=== PATIENT | female | born 1985 | race African-American/Black ===

== ENCOUNTER 2016-12-20 19:53 | Emergency (ER) | payer OTHER ==
[2016-12-20 20:02] VITALS: BP 112/71; PULSE 88; TEMP 98.3; BMI 22.1
--- NOTE | 2016-12-20 20:31 | PDOC ---
History of Present Illness - General Chief Complaint: Pain, Acute Stated Complaint: HEAD/NECK PROBLEM Time Seen by Provider: 12/20/16 20:18 History Source: Patient Exam Limitations: No Limitations - History of Present Illness Initial Comments: 12/20/16 21:23 Chief complaint: Right lateral neck pain that radiates to her right mid shoulder area since waking this morning History of present illness: Patient is a 31-year-old female with h/o anemia here today due to waking with right lateral neck pain that radiates to her right mid posterior shoulder area since this morning. Patient reports taking Tylenol earlier today however it alleviated pain slightly. Patient reports the pain is an 8 and is worse with lying down and trying to get up. Patient reports that she works walking and holding an laptop in her arm. Patient reports the pain currently as an 8 out of 10 aching in nature. Patient denies any radiation down her right arm or any numbness of her right arm or tingling. Patient denies any midline neck tenderness. 12/20/16 21:25 Timing/Duration: changing over time (lessening ) Severity: moderate (rt. lateral neck to rt. mid shoulder area) Modifying Factors: improves with: movement Associated Symptoms: reports: denies symptoms Past History - Past Medical History Allergies/Adverse Reactions: Allergies Allergy/AdvReac Type Severity Reaction Status Date / Time No Known Drug Allergies Allergy Verified 12/20/16 19:59 Home Medications: Ambulatory Orders Cyclobenzaprine HCl [Flexeril 10 mg] 10 mg PO Q8H PRN #20 tablet 12/20/16 Naproxen [Naprosyn -] 500 mg PO BID PRN #14 tablet 12/20/16 Anemia: Yes Asthma: No Cancer: No Cardiac Disorders: No CVA: No COPD: No CHF: No Dementia: No Diabetes: No GI Disorders: No Disorders: No HTN: No Hypercholesterolemia: No Liver Disease: No Seizures: No Thyroid Disease: No - Psycho/Social/Smoking Cessation Hx Anxiety: No Suicidal Ideation: No Smoking History: Never smoked Have you smoked in the past 12 months: Yes Number of Cigarettes Smoked Daily: 3 'Breaking Loose' booklet given: 05/28/12 Hx Alcohol Use: No Drug/Substance Use Hx: No Substance Use Type: None Hx Substance Use Treatment: No Review of Systems - Review of Systems Able to Perform ROS?: Yes Constitutional: No: Symptoms Reported HEENTM: No: Symptoms Reported Respiratory: No: Symptoms reported Cardiac (ROS): No: Symptoms Reported ABD/GI: No: Symptoms Reported : No: Symptoms Reported Musculoskeletal: Yes: Muscle Pain (rt. posterior shoulder midway ), Neck Pain ( right lateral radiates to rt. mid posterior shoulder areas since waking today ) Integumentary: No: Symptoms Reported Neurological: No: Symptoms reported *Physical Exam - Vital Signs Last Vital Signs Temp Pulse Resp BP Pulse Ox 98.3 F 88 18 112/71 100 12/20/16 20:00 12/20/16 20:00 12/20/16 20:00 12/20/16 20:00 12/20/16 20:00 - Physical Exam General Appearance: Yes: Appropriately Dressed HEENT: positive: Normal ENT Inspection Neck: positive: Tender (rt. lateral ), Tender lateral (right ). negative: Lymphadenopathy (R), Lymphadenopathy (L), Tender midline Respiratory/Chest: positive: Lungs Clear, Normal Breath Sounds. negative: Respiratory Distress Cardiovascular: positive: Regular Rhythm, Regular Rate, S1, S2 Extremity: positive: Normal Capillary Refill, Normal Inspection, Normal Range of Motion, Tender (rt. mid posterior shoulder ). negative: Swelling Integumentary: positive: Normal Color Neurologic: positive: Alert, Normal Response, Motor Strength 5/5 (upper extremities), Respond to painful stimul (rt.shoulder, neck, arm ). negative: Sensory Deficit (rt. arm) Medical Decision Making - Medical Decision Making 12/20/16 21:25 Patient is a 31-year-old female with no significant medical history here today due to waking with right lateral neck pain that radiates to her right mid posterior shoulder area since this morning. Patient reports taking Tylenol earlier today however it alleviated pain slightly. Patient reports the pain is an 8 and is worse with lying down and trying to get up. Patient reports that she works walking and holding an laptop in her arm. Patient reports the pain currently as an 8 out of 10 aching in nature. Patient denies any radiation down her right arm or any numbness of her right arm or tingling. Patient denies any midline neck tenderness. 12/20/16 21:27 rt. Lateral neck and posterior right mid shoulder pain Plan: Urine hCG negative Naprosyn 500 mg by mouth now then twice a day 7 days as needed for pain Flexeril 10 mg by mouth now then every 8 hours as needed for muscle tightness or spasm Follow up with ortho *DC/Admit/Observation/Transfer Diagnosis at time of Disposition: Neck pain on right side Muscle strain of shoulder region Qualifiers: Encounter type: initial encounter Laterality: right Qualified Code(s): S46.911A - Strain of unspecified muscle, fascia and tendon at shoulder and upper arm level, right arm, initial encounter - Discharge Dispostion Disposition: HOME Condition at time of disposition: Stable - Referrals Referrals: Adán Luque MD [Primary Care Provider] - John Shelton MD [Staff Physician] - - Patient Instructions Additional Instructions: Follow up with orthopedist if pain continues or worsens Avoid looking down when carrying laptop or eye pat had as this will cause more pain and your neck and shoulder area Return to emergency room if symptoms worsen or new symptoms develop Patient voiced understanding of discharge instructions and all questions were answered
[2016-12-20] MEDS ORDERED: NAPROXEN 500 MG TABLET (FP) PO ONE (21:22)
[2016-12-20] MEDS ORDERED: CYCLOBENZAPRINE HCL 10 MG TABLET (FP) PO ONE (21:22)
[2016-12-20] MEDS ORDERED: NAPROXEN 500 MG TABLET (FP) ONE (21:26)
[2016-12-20] MEDS ORDERED: CYCLOBENZAPRINE HCL 10 MG TABLET (FP) ONE (21:26)
== END 2016-12-20 21:31 | disposition home or self-care (01) ==
LOC: JERFT 19:53
DX: M54.2 Cervicalgia (principal); S46.811A Strain of other muscles, fascia and tendons at shoulder and upper arm level, right arm, initial encounter; X50.1XXA Overexertion from prolonged static or awkward postures, initial encounter; Y93.89 Activity, other specified; Y92.038 Other place in apartment as the place of occurrence of the external cause
CPT/HCPCS: 84703; 99281-25

== ENCOUNTER 2017-01-25 08:22 | Emergency (ER) | payer OTHER ==
[2017-01-25 08:33] VITALS: BP 139/71; PULSE 95; TEMP 98.5; BMI 21.6
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
[2017-01-25] MEDS ORDERED: ACETAMINOPHEN 500 MG TABLET (FP) PO ONE (09:12)
[2017-01-25] MEDS ORDERED: ACETAMINOPHEN 500 MG TABLET (FP) ONE (09:28)
== END 2017-01-25 10:12 | disposition home or self-care (01) ==
LOC: JERFT 08:22
DX: R51 Headache (principal); V49.49XA Driver injured in collision with other motor vehicles in traffic accident, initial encounter; Y92.410 Unspecified street and highway as the place of occurrence of the external cause; Y93.89 Activity, other specified
CPT/HCPCS: 70450-TC; 84703; 99281-25

== ENCOUNTER 2021-08-11 09:44 | Emergency (ER) | payer OTHER ==
[2021-08-11 09:57] VITALS: BP 120/81; PULSE 95; BMI 24.9
[2021-08-11 09:59] VITALS: TEMP 98.3
[2021-08-11] MEDS ORDERED: KETOROLAC TROMETHAMINE 30 MG/1 ML VIAL IM ONE (10:06)
[2021-08-11] MEDS ORDERED: ACETAMINOPHEN/CAFFEINE/BUTALBITAL 1 TAB PO ONE (10:06)
[2021-08-11] MEDS ORDERED: KETOROLAC TROMETHAMINE 30 MG/1 ML VIAL ONE (10:10)
[2021-08-11] MEDS ORDERED: ACETAMINOPHEN/CAFFEINE/BUTALBITAL 1 TAB ONE (10:11)
== END 2021-08-11 10:40 | disposition home or self-care (01) ==
LOC: JER 09:44
PROC: 3E0233Z Introduction of Anti-inflammatory into Muscle, Percutaneous Approach (ICD-10-PCS; principal; 2021-08-11)
DX: R05.1 Acute cough (principal); R51.9 Headache, unspecified; R09.81 Nasal congestion; Z11.52 Encounter for screening for COVID-19
CPT/HCPCS: 71046-TC-FY; 99284-25; C9803; U0003; U0005

== ENCOUNTER 2022-03-01 23:23 | Emergency (ER) | payer OTHER ==
[2022-03-01 23:29] VITALS: TEMP 98.2; BMI 24.0
[2022-03-02] MEDS ORDERED: ACETAMINOPHEN 500 MG TABLET (FP) PO ONE (00:03)
[2022-03-02] MEDS ORDERED: ACETAMINOPHEN 500 MG TABLET (FP) ONE (00:15)
[2022-03-02 01:09] LABS: BASO % 0.4 % (0-2.0); EOS % 0.7 % (0-4.5); HEMATOCRIT 37.4 % (32.4-45.2); HEMOGLOBIN 12.4 GM/dL (10.7-15.3); LYMPH % 35.5 % (8-40); MCH 31.2 pg (25.7-33.7); MCHC 33.1 g/dl (32.0-36.0); MEAN CELL VOLUME 94.4 fl (80-96); MEAN PLT VOLUME 7.3 fl (7.5-11.1); MONO % 8.5 % (3.8-10.2); NEUT % 54.9 % (42.8-82.8); PLATELET COUNT 313 10^3/uL (134-434); RBC 3.96 M/mm3 (3.60-5.2); WHITE BLOOD COUNT 8.6 K/mm3 (4.0-10.0)
[2022-03-02 01:18] LABS: CHLORIDE 107 mmol/L (98-107); SODIUM 137 mmol/L (136-145)
[2022-03-02 01:21] LABS: ANION GAP 7 MMOL/L (8-16); BLOOD UREA NITROGEN 16.4 mg/dL (7-18); CO2 23 mmol/L (21-32); GLUCOSE,RANDOM 100 mg/dL (74-106)
[2022-03-02 01:22] LABS: ALBUMIN 3.7 g/dl (3.4-5.0)
[2022-03-02 01:24] LABS: CREATININE 0.8 mg/dL (0.55-1.3); SGOT/AST 17 U/L (15-37); SGPT/ALT 20 U/L (13-61)
[2022-03-02 01:26] LABS: BILIRUBIN,TOTAL 0.4 mg/dL (0.2-1); TOT PROT 7.3 g/dl (6.4-8.2)
[2022-03-02 01:27] LABS: ALK PHOS 88 U/L (45-117)
[2022-03-02] MEDS ORDERED: KETOROLAC TROMETHAMINE 15 MG/ML VIAL IVPUSH ONE (01:46)
[2022-03-02] MEDS ORDERED: KETOROLAC TROMETHAMINE 15 MG/ML VIAL ONE (01:53)
[2022-03-02 02:16] VITALS: BP 126/78; PULSE 76
== END 2022-03-02 02:15 | disposition home or self-care (01) ==
LOC: JER 23:23
PROC: 3E0233Z Introduction of Anti-inflammatory into Muscle, Percutaneous Approach (ICD-10-PCS; principal; 2022-03-01)
DX: R07.9 Chest pain, unspecified (principal)
CPT/HCPCS: 36415; 71046-TC-FY; 80053; 84484; 84703; 85025; 85379; 93005; 93010; 99285-25

== ENCOUNTER 2022-10-05 16:30 | Emergency (ER) | payer OTHER ==
[2022-10-05 16:43] VITALS: BP 108/71; PULSE 73; RESP 18; TEMP 97.8; BMI 24.0
[2022-10-05] MEDS ORDERED: DIPHTH,PERTUSS(ACELL),TET 0.5 ML DISP.SYRIN IM ONE ×2 (17:43→18:17)
[2022-10-05] MEDS ORDERED: AMOX TR/POT CLAV 875MG/125MG TABLETS (FP) PO ONE (17:44)
[2022-10-05] MEDS ORDERED: AMOX TR/POT CLAV 875MG/125MG TABLETS (FP) ONE (18:17)
== END 2022-10-05 19:04 | disposition home or self-care (01) ==
LOC: JERFT 16:30
PROC: 3E0234Z Introduction of Serum, Toxoid and Vaccine into Muscle, Percutaneous Approach (ICD-10-PCS; principal; 2022-10-05)
DX: S81.852A Open bite, left lower leg, initial encounter (principal); W54.0XXA Bitten by dog, initial encounter
CPT/HCPCS: 73562-TC-LT-FY; 90471; 90715; 99283-25

== ENCOUNTER 2023-03-06 23:04 | Emergency (ER) | payer OTHER ==
[2023-03-06 23:13] VITALS: BP 116/73; PULSE 96; RESP 20; TEMP 97.8; BMI 23.3
[2023-03-07] MEDS ORDERED: KETOROLAC TROMETHAMINE 30 MG/1 ML VIAL IM ONE (00:25)
[2023-03-07] MEDS ORDERED: KETOROLAC TROMETHAMINE 30 MG/1 ML VIAL ONE (00:33)
== END 2023-03-07 01:18 | disposition home or self-care (01) ==
LOC: JER 23:04
PROC: 3E0233Z Introduction of Anti-inflammatory into Muscle, Percutaneous Approach (ICD-10-PCS; principal; 2023-03-07)
DX: S61.521A Laceration with foreign body of right wrist, initial encounter (principal); M79.641 Pain in right hand; M25.531 Pain in right wrist; W18.40XA Slipping, tripping and stumbling without falling, unspecified, initial encounter; W25.XXXA Contact with sharp glass, initial encounter; Y93.E5 Activity, floor mopping and cleaning; Y92.002 Bathroom of unspecified non-institutional (private) residence as the place of occurrence of the external cause
CPT/HCPCS: 73110-TC-RT-FY; 73130-TC-RT-FY; 99284-25

== ENCOUNTER 2024-01-16 13:47 | Emergency (ER) | payer OTHER ==
[2024-01-16 13:53] VITALS: BP 93/75; PULSE 65; RESP 18; TEMP 97.5; BMI 21.2
[2024-01-16 14:34] LABS: BASO % 0.6 % (0-2.0); EOS % 1.1 % (0-4.5); HEMATOCRIT 34.1 % (32.4-45.2); LYMPH % 42.1 % (8-40); MCH 29.7 pg (25.7-33.7); MCHC 32.3 g/dl (32.0-36.0); MONO % 9.2 % (3.8-10.2); PLATELET COUNT 370 10^3/uL (134-434); RDW 16.6 % (11.6-15.6); WHITE BLOOD COUNT 5.9 K/mm3 (4.0-10.0)
[2024-01-16 14:42] LABS: POTASSIUM 4.1 mmol/L (3.5-5.1)
[2024-01-16 14:43] LABS: CALCIUM 8.7 mg/dL (8.5-10.1)
[2024-01-16 14:44] LABS: BLOOD UREA NITROGEN 11.6 mg/dL (7-18)
[2024-01-16 14:47] LABS: CREATININE 0.8 mg/dL (0.55-1.3)
[2024-01-16 14:58] LABS: PH,URINE 5.5 (5.0-8.0); URINE APPEARANCE CLEAR; URINE BILIRUBIN NEGATIVE (NEGATIVE); URINE COLOR YELLOW; URINE GLUCOSE (UA) NEGATIVE (NEGATIVE); URINE KETONE TRACE (NEGATIVE); URINE LEUK ESTERASE NEGATIVE (NEGATIVE); URINE NITRITE NEGATIVE (NEGATIVE); URINE PROTEIN NEGATIVE (NEGATIVE); URINE UROBILINOGEN 0.2 mg/dL (0.2-1.0)
[2024-01-16] MEDS ORDERED: KETOROLAC TROMETHAMINE 30 MG/1 ML VIAL ONE (15:19)
[2024-01-16] MEDS: KETOROLAC TROMETHAMINE 30 MG/1 ML VIAL IVPUSH ONE (15:22)
== END 2024-01-16 17:55 | disposition home or self-care (01) ==
LOC: JER 13:47
PROC: 3E033NZ Introduction of Analgesics, Hypnotics, Sedatives into Peripheral Vein, Percutaneous Approach (ICD-10-PCS; principal; 2024-01-16)
DX: N83.202 Unspecified ovarian cyst, left side (principal); D25.9 Leiomyoma of uterus, unspecified
CPT/HCPCS: 36415; 76830-TC; 80048; 81003; 84703; 85025; 87086; 99284-25

== ENCOUNTER 2024-11-20 17:50 | Emergency (ER) | payer OTHER ==
[2024-11-20 18:00] VITALS: BP 113/65; PULSE 78; RESP 18; TEMP 97.7; BMI 21.9
[2024-11-20] MEDS ORDERED: ACETAMINOPHEN 500 MG TABLET (FP) ONE (18:22)
[2024-11-20] MEDS: ACETAMINOPHEN 500 MG TABLET (FP) PO ONE (18:29)
[2024-11-20 18:41] LABS: EPI CELLS 10 /uL (0-25.1); HYALINE CASTS 3 /uL (0-3.1); PH,URINE 6.5 (5.0-8.0); URINE APPEARANCE CLOUDY; URINE BACTERIA >9,000 /uL (0-1359); URINE BILIRUBIN NEGATIVE (NEGATIVE); URINE COLOR ORANGE; URINE GLUCOSE (UA) NEGATIVE (NEGATIVE); URINE KETONE TRACE (NEGATIVE); URINE LEUK ESTERASE 2+ (NEGATIVE); URINE NITRITE NEGATIVE (NEGATIVE); URINE PROTEIN 2+ (NEGATIVE); URINE RBC 3671 /uL (0-23.9); URINE WBC 3208 /uL (0-25.8)
== END 2024-11-20 19:03 | disposition home or self-care (01) ==
LOC: JERFT 17:50
DX: N39.0 Urinary tract infection, site not specified (principal); R30.0 Dysuria; R31.9 Hematuria, unspecified
CPT/HCPCS: 81003; 84703; 87086; 87186; 99283-25